=== PATIENT | male | born 1995 | race Caucasian/White ===

== ENCOUNTER → 2024-05-01 11:50 | Outpatient (REF) | payer BC, SELFPAY | LOC: RAD 11:50 | PROVIDERS: ATTENDING PHYSICIAN Orthopaedic Surgery Orthopaedic Trauma; FAMILY PHYSICIAN Family Medicine | DX: S53.104A Unspecified dislocation of right ulnohumeral joint, initial encounter (principal) | CPT/HCPCS: 70030 ==